=== PATIENT | female | born 1935 | race Caucasian/White ===

== ENCOUNTER 2018-12-06 11:29 | Emergency (ER) | payer BC ==
[~2018-12-06] VITALS: Ht 160 cm; Wt 59.0 kg
[2018-12-06 11:33] VITALS: BP 149/93
[2018-12-06] MEDS ORDERED: KETOROLAC TROMETHAMINE INJ 60 MG/2 ML VIAL IM ONE (12:00)
[2018-12-06] MEDS ORDERED: KETOROLAC TROMETHAMINE 15 MG/ML VIAL ONE (12:01)
[2018-12-06 12:39] LABS: APPEARANCE,URINE Slightly Cloudy (CLEAR); BILIRUBIN,URINE Negative (NEGATIVE); BLOOD, URINE Negative Ery/uL (NEGATIVE); COLOR,URINE Yellow (YELLOW); KETONES,URINE Negative (NEGATIVE); LEUKOCYTE ESTERASE ,URINE Negative (NEGATIVE); NITRITE, URINE Negative (NEGATIVE); PH,URINE 7.5 (5.0-8.0); PROTEIN,URINE Negative (NEGATIVE); UGLUCOSE Negative (NEGATIVE); UROBILINOGEN,URINE 0.2 EU/dL (0.2)
[2018-12-06] MEDS ORDERED: TRAMADOL HCL 50 MG TABLET ONE (13:52)
[2018-12-06] MEDS ORDERED: TRAMADOL HCL 50 MG TABLET PO ONE (14:00)
== END 2018-12-06 14:44 | disposition home or self-care (01) ==
LOC: ER 11:35
DX: M54.16 Radiculopathy, lumbar region (principal); M51.36 Other intervertebral disc degeneration, lumbar region; M16.12 Unilateral primary osteoarthritis, left hip; Z88.2 Allergy status to sulfonamides; Z95.5 Presence of coronary angioplasty implant and graft
CPT/HCPCS: 72110; 73503; 81001; 96372; 99284; A4606; J1885; 73502; 81000-TC

== ENCOUNTER 2019-10-07 12:05 | Emergency (ER) | payer BC ==
[~2019-10-07] VITALS: Ht 162.6 cm; Wt 59.0 kg
[2019-10-07 12:07] VITALS: BP 167/84
--- NOTE | 2019-10-07 12:25 | NUR ---
dr. salazar at bedside for eval.
--- NOTE | 2019-10-07 12:56 | NUR ---
Patient discharged to home in stable condition. Written and verbal after care instructions given. Patient verbalizes understanding of instruction.
== END 2019-10-07 12:56 | disposition home or self-care (01) ==
LOC: ER 12:09
DX: F41.9 Anxiety disorder, unspecified (principal); R42 Dizziness and giddiness; Z98.890 Other specified postprocedural states; Z88.2 Allergy status to sulfonamides

== ENCOUNTER 2021-12-16 13:15 | Inpatient (IN) | payer BC ==
[~2021-12-16] VITALS: Ht 160 cm; Wt 52.2 kg
--- NOTE | 2021-12-16 13:30 | NUR ---
PT CAME TO ER C/O SOB X [address] REPORTS GET ALLERGIES WHEN WINDS BLOW STRONGLY. HX OF ALLERGY AND ASTHMA. DENIES HAVING ASTHMA ATTACK FORO 10 YEARS. AAOX4, NOT IN RESP DISTRESS. BREATHING EVEN AND UNLABORED. ON MONITOR. POX 95% ON RA. WILL CONTINUE TO MONITOR.
[2021-12-16] MEDS ORDERED: ALBUTEROL FS 2.5 MG/3 ML VIAL.NEB NEB ONE (14:30)
[2021-12-16] MEDS ORDERED: IPRATROPIUM NEB FS 0.5 MG/2.5 ML AMPUL.NEB NEB ONE (14:30)
[2021-12-16] MEDS ORDERED: methylPREDNISolone SOD SUCC 125 MG/2ML VIAL IV ONE (14:30)
[2021-12-16] MEDS ORDERED: methylPREDNISolone SOD SUCC 125 MG/2ML VIAL ONE (14:40)
[2021-12-16] MEDS ORDERED: ALBUTEROL FS 2.5 MG/3 ML VIAL.NEB ONE (14:44)
[2021-12-16] MEDS ORDERED: IPRATROPIUM NEB FS 0.5 MG/2.5 ML AMPUL.NEB ONE (14:44)
--- NOTE | 2021-12-16 14:50 | NUR ---
RT at bedside
--- NOTE | 2021-12-16 14:57 | NUR ---
x ray at bedside
[2021-12-16 15:21] LABS: BASOPHILS # (AUTO) 0.1 K/uL (0.0-0.2); BASOPHILS % (AUTO) 0.9 % (0.0-2.0); EOSINOPHILS % (AUTO) 4.5 % (0.0-6.0); HEMATOCRIT 34 % (33-45); LYMPHOCYTES # (AUTO) 1.3 K/uL (0.8-4.8); LYMPHOCYTES % (AUTO) 15.5 % (20.0-44.0); MEAN CORPUSCULAR HGB CONC 33 g/dl (31.0-36.0); MEAN CORPUSCULAR VOLUME 92 fL (82-100); MONOCYTES # (AUTO) 0.5 K/uL (0.1-1.30); MONOCYTES % (AUTO) 5.7 % (2.0-12.0); NEUTROPHILS # (AUTO) 6.2 K/uL (1.8-8.9); NEUTROPHILS % (AUTO) 73.4 % (43.0-81.0); PLATELET COUNT (AUTO) 274 K/uL (150-450); RED BLOOD CELL COUNT(AUTO) 3.64 MIL/uL (4.0-5.2); WHITE BLOOD COUNT (AUTO) 8.4 K/uL (4.3-11.0)
[2021-12-16] MEDS ORDERED: AZITHROMYCIN 500 MG in IV D5W 250 ML IV ONE (15:30)
[2021-12-16] MEDS ORDERED: CEFTRIAXONE 1GM BAG (ER ONLY) 1 GM/50 ML PIGGYBACK IV ONE (15:30)
[2021-12-16] MEDS ORDERED: CEFTRIAXONE 1GM BAG (ER ONLY) 50 ML IV ONE (15:34)
[2021-12-16 15:36] LABS: CALCIUM, SERUM 8.2 mg/dL (8.5-10.1); CARBON DIOXIDE 29 mmol/L (21-32); CHLORIDE 105 mmol/L (98-107); CREATININE 0.5 mg/dL (0.6-1.3); GLUCOSE 90 mg/dL (74-106); POTASSIUM 4.1 mmol/L (3.5-5.1); SODIUM SERUM 140 mmol/L (136-145); UREA NITROGEN, BLOOD 21 mg/dL (7-18)
[2021-12-16 15:51] LABS: ALANINE AMINOTRANSFERASE 54 U/L (12-78); ALKALINE PHOSPHATASE 129 U/L (46-116); ASPARTATE AMINOTRANSFERASE 36 U/L (15-37); BILIRUBIN,DIRECT 0.1 mg/dL (0.0-0.2); BILIRUBIN,TOTAL 0.6 mg/dL (0.2-1.0); TOTAL PROTEIN, SERUM 6.6 g/dL (6.4-8.2)
--- NOTE | 2021-12-16 16:49 | NUR ---
pt bed adjusted for comfort. needs met
[2021-12-16] MEDS ORDERED: AZIT250T13 PO (17:41)
[2021-12-16] MEDS ORDERED: ALBU2.5V38 NEB (17:41)
[2021-12-16] MEDS ORDERED: DILTIAZEM HCL 50 MG IV IV ONE (18:30)
[2021-12-16] MEDS ORDERED: DILTIAZEM HCL 25 MG IV ONE (18:51)
[2021-12-16] MEDS ORDERED: APIXABAN 2.5 MG TABLET PO STA (19:42)
[2021-12-16] MEDS ORDERED: APIXABAN 2.5 MG TABLET ONE (19:50)
--- NOTE | 2021-12-16 20:15 | NUR ---
pt eating dinner.
--- NOTE | 2021-12-16 21:39 | NUR ---
IZABEL, [employer]TER - PT IS APPROVED TO STAY. AUTH# [id number]
[2021-12-16] MEDS ORDERED: APIXABAN 5 MG TABLET PO SCH (22:00)
[2021-12-16] MEDS ORDERED: LEVALBUTEROL HCL NEB 1.25 MG/0.5 ML VIAL.NEB NEB PRN (22:00)
[2021-12-16] MEDS ORDERED: IV NS 0.9% 1,000 ML IV SCH (22:00)
[2021-12-16] MEDS ORDERED: MORPHINE SULFATE INJ 2 MG/ML DISP.SYRIN IV PRN (22:00)
[2021-12-16] MEDS ORDERED: ACETAMINOPHEN 325 MG TABLET PO PRN (22:00)
[2021-12-16] MEDS ORDERED: LABETALOL 20 MG/4 ML VIAL IV PRN (22:00)
[2021-12-16] MEDS ORDERED: ONDANSETRON HCL/PF 4 MG/2 ML VIAL IVP PRN (22:00)
--- NOTE | 2021-12-16 22:03 | NUR ---
ROOM 103
--- NOTE | 2021-12-16 22:03 | NUR ---
REPORT GIVEN TO RN
[2021-12-16] MEDS ORDERED: NITROGLYCERIN PACKET 1 GM PACKET TOP ONE (22:30)
--- NOTE | 2021-12-16 22:41 | NUR ---
PT RECEIVING BREATHING TREATMENT. WILL TRANSFER AFTER TREATMENT
[2021-12-16] MEDS ORDERED: FUROSEMIDE 40 MG/4 ML VIAL IV ONE (23:00)
[2021-12-16] MEDS ORDERED: METOPROLOL SUCCINATE 50 MG TAB.SR.24H PO SCH (23:00)
[2021-12-16] MEDS ORDERED: METOPROLOL TARTRATE INJ 5 MG/5 ML AMPUL IV PRN (23:00)
--- NOTE | 2021-12-16 23:03 | NUR ---
TAKEN TO CT
--- NOTE | 2021-12-16 23:31 | NUR ---
BACK FROM CT
--- NOTE | 2021-12-16 23:55 | NUR ---
RN NOTES ADMITTED A 86 Y/O FEMALE PATIENT FROM ER VIA GURNEY. PATIENT A/O X4 ABLE TO MAKE NEEDS KNOWN. WITH OXYGEN INHALATION AT 3LPM VIA NC SATING 97%. WITH IV ACCESS AT RFA # 20 PATENT FLUSHES WELL. VITAL SIGNS TAKEN AND RECORDED AFEBRILE. SAFELY TRANSFER TO BED. COMPLETE BODY ASSESSMENT DONE. BELONGING RECORDED. ALL SAFETY MEASURES IN PLACE AT ALL TIMES. CALL LIGHT WITHIN REACH HOB ELEVATED. BED ON LOWEST POSITION AND LOCKED. WILL MONITOR THE PATIENT CLOSELY.
[2021-12-17] VITALS: BP 141/84
--- NOTE | 2021-12-17 00:04 | NUR ---
PATIENT TRANSFERRED UNDER ACLS.
--- NOTE | 2021-12-17 01:15 | NUR ---
RT neb tx not given due to pending pcr
[2021-12-17] MEDS ORDERED: IPRATROPIUM NEB FS 0.5 MG/2.5 ML AMPUL.NEB IH SCH (01:30)
[2021-12-17] MEDS ORDERED: ALBUTEROL FS 2.5 MG/0.5 ML VIAL.NEB NEB SCH (01:30)
[2021-12-17 04:00] VITALS: BP 127/74
[2021-12-17] MEDS ORDERED: ATOR10TA PO (06:48)
[2021-12-17] MEDS ORDERED: METO-357 PO (06:48)
[2021-12-17] MEDS ORDERED: DILT240C49 PO (06:48)
[2021-12-17] MEDS ORDERED: MIRT-90 PO (06:48)
[2021-12-17] MEDS ORDERED: APIX2.5T PO (06:48)
--- NOTE | 2021-12-17 06:51 | NUR ---
RN NOTES PATIENT REMAINS STABLE THE WHOLE SHIFT NO SIGNIFICANT CHANGES IN HEALTH CONDITION. ALL DUE MEDS GIVEN ORDERED. STILL AFIB CONTROLL AND UNCONTROLLED WITH PVC'S. PATIENT DENIES CHEST PAIN OR DISCOMFORT. ON OXYGEN INHALATION AT 3 LPM SATING 99%. PATIENT IS AMBULATORY USED BATHROOM. ALL SAFETY MEASURES IN PLACE AT ALL TIMES. HOB ELEVATED. CALL LIGHT WITHIN REACH. WILL ENDORSED TO MORNING RN FOR GISELA
[2021-12-17] MEDS ORDERED: IPRATROPIUM/ALBUTEROL INHALER IH SCH ×3 (07:37)
[2021-12-17 07:44] LABS: ALBUMIN 2.6 g/dL (3.4-5.0); BILIRUBIN,TOTAL 0.3 mg/dL (0.2-1.0); CREATININE 0.6 mg/dL (0.6-1.3); MAGNESIUM 2.1 mg/dL (1.8-2.4); PHOSPHORUS 3.5 mg/dL (2.5-4.9); POTASSIUM 3.5 mmol/L (3.5-5.1)
[2021-12-17 07:51] LABS: BASOPHILS % (AUTO) 0.2 % (0.0-2.0); EOSINOPHILS % (AUTO) 0.1 % (0.0-6.0); HEMATOCRIT 31 % (33-45); HEMOGLOBIN 10.3 g/dL (11.5-14.8); LYMPHOCYTES # (AUTO) 0.9 K/uL (0.8-4.8); LYMPHOCYTES % (AUTO) 13.6 % (20.0-44.0); MEAN CORPUSCULAR HGB CONC 34 g/dl (31.0-36.0); MEAN CORPUSCULAR VOLUME 91 fL (82-100); MONOCYTES # (AUTO) 0.4 K/uL (0.1-1.30); MONOCYTES % (AUTO) 6.3 % (2.0-12.0); NEUTROPHILS # (AUTO) 5.4 K/uL (1.8-8.9); NEUTROPHILS % (AUTO) 79.8 % (43.0-81.0); PLATELET COUNT (AUTO) 260 K/uL (150-450); RED BLOOD CELL COUNT(AUTO) 3.39 MIL/uL (4.0-5.2); WHITE BLOOD COUNT (AUTO) 6.7 K/uL (4.3-11.0)
[2021-12-17 08:00] VITALS: BP 132/69
--- NOTE | 2021-12-17 08:01 | NUR ---
WHEEL POLISHER OPENING NOTES RECEIVED PATIENT IN BED, A/O X4 ABLE TO MAKE NEEDS KNOWN. WITH OXYGEN SUPPLEMENTATION AT 3LPM VIA NC SATING 97%. WITH IV ACCESS AT RFA # 20 PATENT FLUSHES WELL. VITAL SIGNS TAKEN AND RECORDED AFEBRILE. NO S/S OF CHEST DISCOMFORT OR ANY DISTRESS. NO SOB NOTED, BREATHING EXPANSION SYMMETRICAL. ALL SAFETY MEASURES IN PLACE AT ALL TIMES. CALL LIGHT WITHIN REACH HOB ELEVATED. BED ON LOWEST POSITION AND LOCKED. WILL MONITOR THE PATIENT CLOSELY.
[2021-12-17 08:18] LABS: CALCIUM, SERUM 8.7 mg/dL (8.5-10.1)
[2021-12-17 08:37] VITALS: BP 132/69
[2021-12-17] MEDS ORDERED: CEFTRIAXONE 1 G in IV D5W 50 ML IV SCH (09:00)
[2021-12-17] MEDS ORDERED: LISINOPRIL (10MG) 10 MG TABLET PO SCH (09:00)
[2021-12-17] MEDS ORDERED: APIXABAN 5 MG TABLET PO SCH (09:00)
[2021-12-17] MEDS ORDERED: PRED5TAB48 PO (11:59)
[2021-12-17] MEDS ORDERED: IPRA3AMP23 IH (11:59)
[2021-12-17] MEDS ORDERED: AZITHROMYCIN 500 MG in IV D5W 250 ML IV SCH (17:00)
== END 2021-12-17 13:05 | disposition home or self-care (01) | DRG 202 ==
LOC: ER 13:39 → TELE1 12-17 00:06
PROVIDERS: ADMIT Internal Medicine; ATTEND Nurse Practitioner Acute Care
DX: J45.901 Unspecified asthma with (acute) exacerbation (principal); J90 Pleural effusion, not elsewhere classified; J98.11 Atelectasis; I25.10 Atherosclerotic heart disease of native coronary artery without angina pectoris; I11.0 Hypertensive heart disease with heart failure; I50.9 Heart failure, unspecified; D64.9 Anemia, unspecified; I48.0 Paroxysmal atrial fibrillation; Z79.01 Long term (current) use of anticoagulants; Z95.1 Presence of aortocoronary bypass graft; Z95.2 Presence of prosthetic heart valve; Z66 Do not resuscitate; Z20.822 Contact with and (suspected) exposure to COVID-19
CPT/HCPCS: 36415; 71045-TC; 71250-TC; 80048-TC; 80053-TC; 80076-TC; 83735-TC; 83880; 84100-TC; 84484-TC; 85025-TC; 87081-TC; C9803; G0378; J0456; J0696; J1940; J2930; J3490; J7060; U0003